=== PATIENT | female | born 1955 | race African-American/Black ===

== ENCOUNTER 2018-08-10 12:03 | Emergency (ER) | payer MEDICAID ==
[~2018-08-10] VITALS: Ht 152.4 cm; Wt 83.9 kg
--- NOTE | 2018-08-10 12:16 | NUR ---
ED Nurse Note: PT WALKED IN TO ER TODAY FROM HOME. AOX4. SON AT BEDSIDE. PT C/O CHRONIC RIGHT RIB PAIN, 10 X 1 YEAR. PT DENIES INJURY AND TRAUMA. RR18 WITH O2SAT 98% ON RA LUNG SOUNDS CLEAR IN ALL LOBES. NO SIGNS OF RESPIRATORY DISTRESS.
[2018-08-10 12:20] VITALS: BP 148/72
[2018-08-10] MEDS ORDERED: IBUPROFEN600 MG ORAL (12:20)
[2018-08-10] MEDS ORDERED: ASPIRIN EC81 MG ORAL (12:26)
[2018-08-10] MEDS ORDERED: HYDROCHLOROTH12.5 M2 ORAL (12:26)
[2018-08-10] MEDS ORDERED: METFORMIN HCL500 M1 ORAL (12:26)
[2018-08-10] MEDS ORDERED: ATENOLOL50 MG ORAL (12:26)
[2018-08-10] MEDS ORDERED: BENAZEPRIL HCL10 MG ORAL (12:26)
[2018-08-10] MEDS ORDERED: ACETAMINOPHEN-1 EAC1 ORAL (13:35)
[2018-08-10] MEDS ORDERED: Acetaminophen 500mg (ES) tab ORAL ONE (13:45)
--- NOTE | 2018-08-10 14:00 | Diagnostic Imaging Report ---
Indication: Right-sided chest pain Comparison: None Findings: 4 views of the right chest wall obtained. No rib fracture identified. No pneumothorax identified. Right lung appears clear. IMPRESSION: Negative right unilateral RIBS
--- NOTE | 2018-08-10 14:12 | NUR ---
ED Nurse NotE: PT LAYING PEACEFULLY IN BED IN NAD. AOX4. DAUGHTER AT BEDSIDE. PRESCRIPTION AND DISCHARGE PAPERWORK EXPLAINED TO PT. PT AND DAUGHTER VERBALIZE UNDERSTANDING AND DENIES ANY QUESTIONS AT THIS TIME. PRESCRIPTION AND DISCHARGE PAPERWORK GIVEN TO PT AND ID WRISTBAND REMOVED. PT WALKED OUT OF ER WITH STEADY GAIT AND ALL BELONGINGS.
[2018-08-10 14:16] VITALS: BP 133/60
--- NOTE | 2018-08-10 14:18 | NUR ---
ED Nurse Note: Pt and daughter at bedside received dc instruction with prescription. They both verbalized understanding. pt ambulated to discharge in stabel condition with VSS.
--- NOTE | 2018-08-10 15:42 | Emergency Room Report ---
History of Present Illness General Chief Complaint: Pain Source: Patient Present Illness HPI 62-year-old female presents ED for evaluation. Patient brought in by family for right-sided rib pain. States she's had the pain on and off for one year now. Worse for the last 3 days. Pain is sharp, 7 out of 10, nonradiating. Denies pain with deep breaths. Denies shortness of breath. Denies chest pain. Denies recent trauma. Denies any other injuries. No other aggravating relieving factors. Denies any other associated symptoms Allergies: Coded Allergies: PENICILLINS (Verified Allergy, Unknown, 08/10/18) Patient History Past Medical History: DM, HTN Past Surgical History: none Pertinent Family History: none Social History: Denies: smoking, alcohol use, drug use Last Menstrual Period: 6 YEARS AGO Now: No Immunizations: UTD Reviewed Nursing Documentation: PMH: Agreed; PSxH: Agreed Nursing Documentation-PMH Past Medical History: No History, Except For Hx Hypertension: Yes Hx Diabetes: Yes Review of Systems All Other Systems: negative except mentioned in HPI Physical Exam Vital Signs Date Time Temp Pulse Resp B/P (MAP) Pulse Ox O2 Delivery O2 Flow Rate FiO2 08/10/18 12:13 97.3 75 15 98 Room Air 08/10/18 12:20 148/72 Sp02 EP Interpretation: reviewed, normal General Appearance: no apparent distress, alert, GCS 15, non-toxic Head: normocephalic Eyes: bilateral eye normal inspection, bilateral eye PERRL ENT: hearing grossly normal, normal pharynx, no angioedema, normal voice Neck: full range of motion, supple/symm/no masses Respiratory: lungs clear, normal breath sounds, speaking full sentences, other - reproducible R anterior rib pain Cardiovascular #1: regular rate, rhythm, no edema Gastrointestinal: normal bowel sounds, non tender, soft, non-distended, no guarding, no rebound Rectal: deferred Genitourinary: no CVA tenderness Musculoskeletal: normal inspection Neurologic: alert, oriented x3, responsive, motor strength/tone normal, sensory intact, speech normal Psychiatric: normal inspection Skin: normal inspection Lymphatic: normal inspection Medical Decision Making Diagnostic Impression: Primary Impression: Rib pain ER Course Hospital Course 62 yo F presents to eD with R sided rib pain Differential diagnoses include: Fracture, dislocation, sprain, contusion Clinical course Patient placed on stretcher. After initial history and physical, I ordered pain medications, EKG and Xrays of Chest, Ribs CXR, rib series shows no PTX, no consolidation, no rib fx EKG- NSR, no acute ischemic changes interpreted by me Discussed findings with patient and family. Vital stable. No signs of distress. Symptoms persisting for one year. No indication for emergent workup at this time. Patient is safe for discharge. Family states he'll take patient to see her PMD if pain persists Diagnosis - Rib pain Stable and discharged to home with prescription for tylenol. weight bear as tolerated. Followup with PMD. Return to ED if symptoms recur or worsen EKG Diagnostic Results Rate: normal Rhythm: NSR ST Segments: no acute changes ASA given to the pt in ED: No Rhythm Strip Diag. Results EP Interpretation: yes Rhythm: NSR, no PVC's, no ectopy Chest X-Ray Diagnostic Results Chest X-Ray Diagnostic Results : Chest X-Ray Ordered: Yes # of Views/Limited/Complete: 1 View Indication: Chest Pain EP Interpretation: Yes Interpretation: no consolidation, no effusion, no pneumothorax, no acute cardiopulmonary disease Impression: No acute disease Electronically Signed by: Electronically signed by Bertram Oliveira MD Other X-Ray Diagnostic Results Other X-Ray Diagnostic Results : X-Ray ordered: R rib series # of Views/Limited Vs Complete: 3 View Indication: Pain EP Interpretation: Yes Interpretation: no dislocation, no soft tissue swelling, no fractures Impression: No acute disease Electronically Signed by: Electronically signed by Bertram Oliveira MD Last Vital Signs Date Time Temp Pulse Resp B/P (MAP) Pulse Ox O2 Delivery O2 Flow Rate FiO2 08/10/18 14:16 98.0 71 18 133/60 99 Room Air Status: improved Disposition: HOME, SELF-CARE Condition: Stable Scripts Acetaminophen With Codeine (T#3) (TYLENOL #3 TAB*) Y Tab 1 TAB ORAL Q8H PRN for For Pain for 3 Days, TAB Prov: Bertram Oliveira MD 08/10/18 Patient Instructions: Rib Contusion Bertram Oliveira MD Aug 10, 2018 15:42
== END 2018-08-10 14:14 | disposition home or self-care (01) ==
LOC: EMR 12:55
DX: R07.81 Pleurodynia (principal); Z88.0 Allergy status to penicillin; I10 Essential (primary) hypertension; E11.9 Type 2 diabetes mellitus without complications
CPT/HCPCS: 99283